=== PATIENT | male | born 1965 | race Caucasian/White ===

== ENCOUNTER 2020-05-22 14:03 | Observation (INO) | payer BC, OTHER ==
[2020-05-22 14:28] LABS: #Basophils 0.1 thou/uL (0.0-0.2); #Eosinphils 0.1 thou/uL (0.0-0.7); #Lymphocytes 2.9 thou/uL (1.20-3.40); #Monocytes 0.7 thou/uL (0.11-0.59); #Neutrophils 7.7 thou/uL (1.40-6.50); %Basophils 0.7 % (0.0-1.0); %Eosinophils 0.7 % (0.0-10.0); %Lymphocytes 25.3 % (21.0-51.0); %Neutrophils 67.3 % (42.0-75.0); Hemoglobin 16.7 g/dL (14.0-18.0); Mean Corpuscular HGB CONC 34.6 g/dL (32.0-36.0); Mean Corpuscular Hemoglobin 31.2 pg (27.0-31.0); Mean Corpuscular Volume 90.1 fL (78.0-98.0); Platelet Count 250 thou/uL (130-400); Red Blood Cell (RBC) Count 5.35 mill/uL (4.70-6.10); White Blood Cell (WBC) Count 11.4 thou/uL (4.8-10.8)
--- NOTE | 2020-05-22 14:49 | RAD ---
UPRIGHT PORTABLE CHEST ONE VIEW: History: Chest pain with shortness of breath and weakness. Comparison: 06-13-2015 FINDINGS: Monitor leads overlie the chest. No confluent pneumonia, overt edema, or other acute process. Minimal stable increased markings in the bases. IMPRESSION: Minimal increased markings in the bases. No significant acute intrathoracic disease. POS: [facility]
[2020-05-22 14:50] LABS: ALT (SGPT) 19 U/L (8-55); AST (SGOT) 14 U/L (5-34); Albumin 4.4 g/dL (3.5-5.0); Alkaline Phosphatase 70 U/L (40-110); Anion Gap 14 mmol/L (10-20); BUN (Urea Nitrogen) 11 mg/dL (8.4-25.7); Bilirubin, Total 0.9 mg/dL (0.2-1.2); CK (CPK) 57 U/L (30-200); Calc. Creatinine Clearance 0 mL/min (70-130); Calcium 9.2 mg/dL (7.8-10.44); Carbon Dioxide 22 mmol/L (22-29); Chloride 106 mmol/L (98-107); Estimated GFR-MDRD Greater than 90; Globulin 2.9 g/dL (2.4-3.5); Glucose 105 mg/dL (70-105); Potassium 3.6 mmol/L (3.5-5.1); Protein, Total 7.3 g/dL (6.0-8.3); Sodium 138 mmol/L (136-145)
[2020-05-22] MEDS ORDERED: Aspirin Chewable 81 MG TAB ONE (16:03)
[2020-05-22] MEDS ORDERED: Nitroglycerin 2% Ointment 1 INCH/1 GM Packet ONE (16:03)
[2020-05-22 17:50] VITALS: BMI 35.0
[2020-05-22 18:43] LABS: Troponin I Less than 0.010 ng/mL (< 0.028)
[2020-05-22 21:49] LABS: Troponin I 0.015 ng/mL (< 0.028)
[2020-05-22] MEDS ORDERED: Ondansetron PF 4 MG/2 ML Vial IVP PRN (22:55)
[2020-05-22] MEDS ORDERED: Ondansetron ODT 4 MG TAB SL PRN (22:55)
[2020-05-23] MEDS ORDERED: Ondansetron PF 4 MG/2 ML Vial IVP PRN (08:00)
[2020-05-23] MEDS ORDERED: Acetaminophen 325 MG TAB PO PRN (08:00)
[2020-05-23] MEDS ORDERED: Nitroglycerin 0.4 MG TAB (25 Tab Bottle) SL PRN ×2 (08:00→16:14)
--- NOTE | 2020-05-23 08:20 | HP ---
CHIEF COMPLAINT ON ADMISSION: Chest pain. HISTORY OF PRESENT ILLNESS: The patient is a 55-year-old male, who continues to smoke, who states that over the last several days, he has had substernal chest pain, it radiated into his left arm. He denies diaphoresis, shortness of breath, nausea, or vomiting. However, he came to the emergency room for further evaluation stating that in the past when he has seen Dr. Benson, he was found to have a blockage in the backside of his heart. At the time of entrance into the ER, he was also hypertensive with a blood pressure of 165/106. His medications were none and he has not been compliant with seeing Dr. Mccabe for control of this and other potential medical problems or smoking cessation. PAST MEDICAL HISTORY: Significant for tobacco use, history of coronary artery disease per the patient/Dr. Benson, and hypertension. PAST SURGICAL HISTORY: Includes back surgery. PSYCHIATRIC HISTORY: None. SOCIAL HISTORY: He smoked for greater than 30 years. He smokes 1/2 packs per day. Denies alcohol use. Lives alone. CURRENT MEDICATIONS: None. ALLERGIES: AZITHROMYCIN AND PENICILLIN. REVIEW OF SYSTEMS: CONSTITUTIONAL: He denies fever, chills, cough, shortness of breath, or exposure to anyone with possible COVID or any foreign travel. HEENT: Denies any drainage or pain from eyes, ears, nose, or throat. THORACIC: Denies shortness of breath or cough. CARDIOVASCULAR: He is up in the hospital for chest pain. GI: Denies nausea, vomiting, or diarrhea. : Denies dysuria or blood in urine or stool. MUSCULOSKELETAL: Denies any particular aches or pains, any major muscle systems, or joints. SKIN: Denies rashes or lesions. NEUROLOGIC: Denies any trouble with mentation, headaches, or confusion. ENDOCRINE: Denies any excessive thirst, polyuria, or polydipsia. HEMOLYTIC/LYMPH: Denies any trouble with bruising, clotting, or swelling. PSYCHIATRIC: Denies any trouble with depression or anxiety. PHYSICAL EXAMINATION: VITAL SIGNS: At the time of admission, blood pressure has come down to 150/102, pulse 115, respirations 14, and temperature 98.4. Pain at a 6/10 when he had his chest pain. He states that it was not present when coming to the ER. O2 saturation at 97% on room air. GENERAL: This is a well-developed, well-nourished, male, alert, oriented, and cooperative. HEENT: Normocephalic and atraumatic. Pupils are equal, round, and reactive to light. Extraocular muscles are intact. TMs, nares, and pharynx are clear. NECK: Supple. Trachea midline. No mass. CHEST: With slightly diminished breath sounds bilaterally. HEART: Regular rate and rhythm without murmur. ABDOMEN: Soft and nontender without hepatosplenomegaly. : Deferred. EXTREMITIES: Without clubbing, cyanosis, or edema. Normal range of motion present. SKIN: Without acute rashes or lesions. NEUROLOGIC: Cranial nerves are intact. Mental status is clear. Gait and cerebral function are untested. Sensory exam is grossly intact. Mental status is nonfocal. LABORATORY DATA: The lab work thus far shows WBC slightly elevated at 11.4, hemoglobin 16.7, and hematocrit 48.2 with platelets at 250. The sodium is 138, potassium 3.6, chloride 106, CO2 of 22, BUN 11, creatinine 0.84 with a GFR greater than 90, and glucose 105. Liver functions normal. Troponin I is negative x3. Liver functions normal. Chest x-ray shows no acute disease with minimal increased markings in the bases. ASSESSMENT: 1. Chest pain with history of coronary artery disease. 2. Tobacco abuse. 3. Hypertensive. 4. Noncompliance of medication and medical care. PLAN: Plan will be to get a cardiac stress test. Consult Dr. Benson. Nicotine patches along with smoking cessation education and will further evaluate his lipid functions. We will have nitroglycerin and oxygen p.r.n. Job ID: [id number]
[2020-05-23] MEDS: Aspirin Chewable 81 MG TAB PO SCH (08:42)
[2020-05-23] MEDS: Sodium Chloride 0.9% 1,000 ML IV SCH ×2 (08:43→18:28)
[2020-05-23] MEDS: Nicotine 14 MG PATCH TOP SCH (08:43)
--- NOTE | 2020-05-23 12:40 | NM ---
CARDIAC SPECT: CLINICAL HISTORY: 55-year-old male with chest pain. Hypertension. Smoker. TECHNIQUE: A myocardial perfusion scan was performed using the single isotope one day protocol with technetium-9 9m sestamibi. 9 mCi were injected intravenously for the rest exam followed by 28 mCi for the stress e xam. A Lexiscan-walk stress test was monitored and interpreted by Gurinder Tamez. FINDINGS: A small fixed defect is seen in the apex. No reversible defects are identified. GATED SPECT LVEF: 34%. WALL MOTION EXAM: Global hypokinesis. IMPRESSION: No evidence of reversible ischemia. POS: [facility]
[2020-05-23] MEDS ORDERED: Heparin 10,000 UNITS/1 ML VIAL ONE (14:34)
[2020-05-23] MEDS ORDERED: Nitroglycerin 100MG/250ML BOT 250 ML ONE (14:34)
[2020-05-23] MEDS ORDERED: Verapamil 5 MG/2 ML VIAL ONE (14:34)
[2020-05-23] MEDS ORDERED: Fentanyl 100 MCG/2 ML VIAL ONE (15:25)
[2020-05-23] MEDS ORDERED: Midazolam HCl 2 mg/2 ml Vial ONE (15:25)
--- NOTE | 2020-05-23 15:49 | PRG ---
DATE OF SERVICE: 05/23/2020 Mr. Portillo recently underwent noninvasive stress study. It was negative for ischemia, but did have an LVEF of 34%, which is felt to be new finding. There is concern for balanced ischemia. He did have a small fixed defect . At this point, I discussed proceeding with coronary angiography versus medical therapy. I have discussed risks and benefits of both. He decided to proceed with more aggressive approach. I discussed the procedure in full detail with . Risks included, but not limited to the following. I discussed the procedure in full detail with the patient. The risks of the procedure were also discussed. The risks of the procedure include but are not limited to the following: , stroke, NM, need for emergency surgery, loss of limb, bleeding, and infection, as well as a reaction to the dye causing kidney failure and needing long-term dialysis. I also discussed the risks of PCI to include all of the above including coronary dissection and perforation in addition to acute stent thrombosis and restenosis. All questions about the procedure were answered. Given the above, the patient agreed to proceed with coronary angiography and possible PCI. All questions were answered. I will discuss drug-coated with nondrug coated stent placement. We will proceed if needed. Job ID: [id number]
[2020-05-23] MEDS ORDERED: Acetaminophen/Codeine 30-300mg Tablet PO PRN ×2 (16:14)
[2020-05-23] MEDS ORDERED: Sodium Chloride 0.9% 200 ML IV PRN (16:14)
[2020-05-23] MEDS ORDERED: Sodium Chloride 0.9% 1,000 ML IV SCH (16:15)
[2020-05-23] MEDS ORDERED: Iopamidol 370 76% 100 ML VIAL ONE (16:23)
[2020-05-23] MEDS ORDERED: Regadenoson 0.4 MG/5 ML SYRINGE ONE (16:24)
[2020-05-23] MEDS ORDERED: Zolpidem Tartrate 5 MG TAB PO SCH (21:00)
[2020-05-24] MEDS: Sodium Chloride 0.9% 1,000 ML IV SCH ×2 (00:41→09:08)
[2020-05-24 08:13] LABS: #Eosinphils 0.1 thou/uL (0.0-0.7); #Monocytes 0.6 thou/uL (0.11-0.59); #Neutrophils 5.4 thou/uL (1.40-6.50); %Basophils 0.3 % (0.0-1.0); %Eosinophils 1.1 % (0.0-10.0); %Lymphocytes 24.4 % (21.0-51.0); %Monocytes 7.3 % (0.0-10.0); %Neutrophils 66.8 % (42.0-75.0); Mean Corpuscular HGB CONC 34.2 g/dL (32.0-36.0); Mean Corpuscular Hemoglobin 31.6 pg (27.0-31.0); Mean Corpuscular Volume 92.2 fL (78.0-98.0); Mean Platelet Volume 7.6 fL (7.4-10.4); Platelet Count 210 thou/uL (130-400); RBC Distribution Width 11.9 % (11.5-14.5); Red Blood Cell (RBC) Count 5.07 mill/uL (4.70-6.10); White Blood Cell (WBC) Count 8.1 thou/uL (4.8-10.8)
[2020-05-24 08:33] LABS: Anion Gap 10 mmol/L (10-20); BUN (Urea Nitrogen) 11 mg/dL (8.4-25.7); Calc. Creatinine Clearance 178 mL/min (70-130); Carbon Dioxide 24 mmol/L (22-29); Cardiac Risk 6.7 (Less than 4.5); Chloride 106 mmol/L (98-107); Cholesterol 173 mg/dl (< 200 Desired); Estimated GFR-MDRD Greater than 90; Glucose 104 mg/dL (70-105); HDL Cholesterol 26 mg/dL (>60 Neg Risk); LDL Cholesterol, Calculated 126 mg/dL; Potassium 4.3 mmol/L (3.5-5.1); Sodium 136 mmol/L (136-145); Triglycerides 104 mg/dL (Less than 150)
[2020-05-24] MEDS: Aspirin Chewable 81 MG TAB PO SCH (09:06)
[2020-05-24] MEDS: Nicotine 14 MG PATCH TOP SCH (09:06)
[2020-05-24 15:31] VITALS: BP 125/82; TEMP 98.7
--- NOTE | 2020-05-24 15:45 | CON ---
DATE OF CONSULTATION: 05/23/2020 REASON FOR CONSULTATION: Chest pain. HISTORY OF PRESENT ILLNESS: Mr. Portillo is a 55-year-old gentleman who has been seen and evaluated by Dr. Arnav Benson in the past. He underwent coronary angiography in 2010. He did have [id number] coronary artery disease. Unfortunately, he continues to smoke. Mr. Portillo states over the weekend he began having chest pain. It was described as mild with radiation to his left arm. He became concerned and presented to the emergency room. DICTATION ENDS HERE Job ID: [id number]
== END 2020-05-24 16:50 | disposition home or self-care (01) ==
LOC: ERS 14:03 → INTOOBSV 15:53 → 2NO 15:53
PROVIDERS: ADMIT Specialist; ATTEND Specialist
PROC: 4A023N7 Measurement of Cardiac Sampling and Pressure, Left Heart, Percutaneous Approach (ICD-10-PCS; principal; 2020-05-23)
PROC: B2111ZZ Fluoroscopy of Multiple Coronary Arteries using Low Osmolar Contrast (ICD-10-PCS; 2020-05-23)
DX: I25.10 Atherosclerotic heart disease of native coronary artery without angina pectoris (principal); I25.41 Coronary artery aneurysm; R07.2 Precordial pain; F17.210 Nicotine dependence, cigarettes, uncomplicated; I10 Essential (primary) hypertension; Z88.0 Allergy status to penicillin; Z88.1 Allergy status to other antibiotic agents; Z91.14 Patient's other noncompliance with medication regimen
CPT/HCPCS: 36415; 71045; 78452; 80048; 80053; 80061; 82550; 84484; 85025; 93005; 93017; 93306; 93458; 93572; 94760; 96360; 96361; 97139; 99152; A9500; C1769; G0378; J0153; J1644; J2250; J2785; J3010; Q9967